=== PATIENT | female | born 1995 | race Hispanic/Latino ===

== ENCOUNTER 2025-05-21 17:27 | Emergency (ER) | payer BC ==
[~2025-05-21] VITALS: Ht 149.9 cm; Wt 80.3 kg
--- NOTE | 2025-05-21 17:51 | EKG ---
[facility] Test Date: 2025-05-21 Test Time: 17:47:45 Pat Name: LAURA SOLER Department: [facility] Room: Gender: F Form Setter: [id number] : 1995 Requested By: IVANA ROUSE Order Number: [id number] Reading MD: Robin Mike Measurements Intervals [place] Rate: 85 P: 30 W[place]: 149 QRS: 63 QRSD: 87 T: 39 QT: 340 QTc: 404 Interpretive Statements Sinus rhythm No previous ECG available for comparison Electronically Signed On 05-21-2025 18:18:39 CDT by Robin Mike Please click the below link to view image of tracing.
--- NOTE | 2025-05-21 18:01 | ERN ---
General Chief Complaint: Abdominal Pain Stated Complaint: SHARP PAINS IN STOMACH/ VOMITING/ DIARRHEA Time Seen by MD: 17:35 Time Seen by Midlevel: 17:35 Source: patient History of Present Illness Initial Comments 29-year-old female who presents to the emergency department due to abdominal pain onset last night. Patient reports nausea, vomiting but denies any diarrhea, dysuria, fevers or further associated symptoms. Patient reports she felt the abdominal pain radiating up to the chest. The patient was seen at [facility] in [place], prescribed Zofran and dicyclomine. Patient denies any current chest pain, shortness of breath or further associated symptoms. Allergies: Coded Allergies: No Known Drug Allergies (Unverified Allergy, Unknown, 05/21/25) Past Medical History Past Medical History: No Pertinent History Past Surgical History: Female( History) LMP: May 12, 2025 ROS Dictation Constitutional: Negative for fever,chills, and weight loss Eyes: Negative for injury, pain,redness, and discharge ENT: Negative for injury,pain or swelling Cardiovascular: Negative for chest pain, palpitations, and edema Respiratory: Negative for shortness of breath, cough, and wheezing, Abdomen/GI: Positive for abdominal pain, nausea, vomiting. Negative for diarrhea. Back: Negative for injury and pain : Negative for painful urination, bleeding or discharge MS/Extremity: Negative for injury and deformity Skin: Negative for rash, and discoloration Neuro: Negative for headache, weakness, numbness, tingling, and seizure Psych: Negative for suicide ideation, homicidal ideation, and hallucinations Physical Exam Physical Exam Dictation General: awake, alert, no acute distress Head/Face: Normocephalic, atraumatic Eyes: PERRL, EOMI, normal conjunctiva ENT: oral cavity clear, oral mucosa moist Neck: Supple, normal range of motion Cardiovascular: RRR, normal S1/S2 Respiratory: CTAB, no respiratory distress, no rales or wheezes Abdomen: Soft, non-tender, non-distended, no guarding or rebound. Skin: Warm, dry, normal turgor, no rash MS/Extremity: Pulses equal, no cyanosis, neurovascular intact, FROM Neuro: COAx4, GCS 15, strength 5/5, CN 2-12 intact, normal cerebellar exam, normal gait Psych: Normal behavior, mood, and affect normal Results Laboratory and Microbiology Lab and Micro Result Laboratory Tests Test 05/21/25 18:19 05/21/25 19:13 White Blood Count 8.7 K/uL (4.8-10.8) Red Blood Count 5.22 MIL/uL (4.00-5.50) Hemoglobin 14.9 g/dL (12.0-16.0) Hematocrit 43.1 % (36-48) Mean Corpuscular Volume 82.6 fL (79-99) Mean Corpuscular Hemoglobin 28.5 pg (27.0-33.0) Mean Corpuscular Hemoglobin Concent 34.6 g/dL (32.0-36.0) Red Cell Distribution Width 13.3 % (11.0-15.5) Platelet Count 217 K/uL (130-400) Mean Platelet Volume 10.9 fL (7.5-10.5) H Immature Granulocyte % (Auto) 0.7 % (0-1) Neutrophils (%) (Auto) 67.1 % (40.0-77.0) Lymphocytes (%) (Auto) 22.6 % (21.0-51.0) Monocytes (%) (Auto) 8.2 % (3.0-13.0) Eosinophils (%) (Auto) 1.1 % (0.0-8.0) Basophils (%) (Auto) 0.3 % (0.0-5.0) Neutrophils # (Auto) 5.8 K/uL (1.8-7.7) Lymphocytes # (Auto) 2.0 K/uL (1.0-4.8) Monocytes # (Auto) 0.7 K/uL (0.1-1.0) Eosinophils # (Auto) 0.10 K/uL (0.00-0.70) Basophils # (Auto) 0.03 K/uL (0.00-0.20) Absolute Immature Granulocyte (auto 0.06 K/uL (0-1) Nucleated Red Blood Cells 0.0 % (0.0-0.19) Sodium Level 138 mmol/L (136-145) Potassium Level 4.2 mmol/L (3.5-5.1) Chloride Level 100 mmol/L (101-111) L Carbon Dioxide Level 30 mmol/L (21-32) Blood Urea Nitrogen 16 mg/dL (7-18) Creatinine 0.8 mg/dL (0.5-1.0) Glomerular Filtration Rate Calc 102 mL/min (>90) Random Glucose 87 mg/dL (70-105) Total Calcium 9.7 mg/dL (8.5-10.1) Total Bilirubin 0.5 mg/dL (0.2-1.0) Direct Bilirubin 0.1 mg/dL (0.0-0.3) Aspartate Amino Transf (AST/SGOT) 13 U/L (10-37) Alanine Aminotransferase (ALT/SGPT) 30 U/L (12-78) Alkaline Phosphatase 59 U/L (50-136) Troponin I High Sensitivity < 4 ng/L (4-50) L Total Protein 7.8 g/dL (6.0-8.3) Albumin 4.0 g/dL (3.5-5.0) Lipase 51 U/L (16-77) Urine Color YELLOW (YELLOW) Urine Appearance CLEAR (CLEAR) Urine pH 6.5 (5.0-8.0) Urine Specific [place] 1.036 (1.001-1.031) Urine Protein 20 mg/dL (NEGATIVE) H Urine Glucose (UA) NEGATIVE mg/dL (NEGATIVE) Urine Ketones 10 mg/dL (NEGATIVE) H Urine Occult Blood NEGATIVE (NEGATIVE) Urine Nitrate NEGATIVE (NEGATIVE) Urine Bilirubin NEGATIVE mg/dL (NEGATIVE) Urine Urobilinogen 2.0 mg/dL (0.2-1.0) H Urine Leukocyte Esterase NEGATIVE Lisa/uL Urine RBC 6-10 /HPF (0-1) H Urine WBC 0-1 /HPF (0-1) Urine Squamous Epithelial Cells FEW /HPF (0-2) Urine Bacteria None /HPF (None Seen) Urine HCG, Qualitative NEGATIVE (NEGATIVE) Labs Reviewed?: Yes EKG/XRAY/US/CT/MRI EKG Comment Date: 05/21/2025 Time: 1747 Rate: 85 EKG interpretation: Sinus rhythm, no STEMI Reviewed by ED Attending MDM MDM: Differential diagnosis: Rationale: 29-year-old female who presents to the emergency department due to abdominal pain onset last night. Patient reports nausea, vomiting but denies any diarrhea, dysuria, fevers or further associated symptoms. Patient reports she felt the abdominal pain radiating up to the chest. The patient was seen at [facility] in [place], prescribed Zofran and dicyclomine. Patient denies any current chest pain, shortness of breath or further associated symptoms. Per physical examination patient is in no acute distress, abdomen is soft nontender. Labs obtained seen chemistry are nonspecific, LFTs within normal limits, normal lipase. Negative troponin. UA negative for urinary tract infe ction. Patient received IV fluids, GI cocktail, Zofran in the ED. On re- examination patient verbalized she felt better and pain had resolved. Patient was educated on findings and diagnosis. Advised to follow up with PCP. Return to the emergency department if any worsening symptoms. Patient verbalized understanding. Patient stable for discharge. There are no social concerns with this patient. I independently interpreted the test that were performed, results were reviewed by me and considered findings on radiology if ordered. Medical management and examination interpretation discussions were had by me with other qualified healthcare professionals as indicated for the patient's care. ED Course Orders Procedure Category Date Status Time Cbc With Differential LAB 05/21/25 Complete 17:35 Basic Metabolic Panel LAB 05/21/25 Complete 17:35 Urinalysis LAB 05/21/25 Complete W/Microscopic 17:35 Hepatic Function Panel LAB 05/21/25 Complete 17:35 Lipase LAB 05/21/25 Complete 17:35 ,Urine Test LAB 05/21/25 Complete 17:35 Troponin I High LAB 05/21/25 Complete Sensitivity 17:35 12 Lead Ekg Tracing- EKG 05/21/25 Resulted Technical 17:35 Mag/Alum/Simeth 30ml PHA 05/21/25 Complete (Maalox Plus 30ml) 18:00 Lidocaine Hcl 2% PHA 05/21/25 Complete Viscous (Lidocaine Hcl 18:00 Pantoprazole 40mg Inj PHA 05/21/25 Complete (Protonix 40mg Inj 18:00 0.9%Nacl 1000ml (Ns PHA 05/21/25 Complete 1000ml) 18:00 Ondansetron Odt 4mg PHA 05/21/25 Complete Tab (Zofran 4mg Odt) 20:00 Current Medications Medications (Trade) Dose Ordered Sig/Segundo Route PRN Reason Start Time Stop Time Status Last Admin Dose Admin Al Hydroxide/Mg Hydroxide (MAALox PLUS 30ML) 30 ml ONCE ONCE PO 05/21/25 18:00 05/21/25 18:01 DC 05/21/25 19:48 Lidocaine HCl (Lidocaine HCl 2% Viscous) 10 ml ONCE ONCE PO 05/21/25 18:00 05/21/25 18:01 DC 05/21/25 19:48 Ondansetron HCl (zoFRAN 4MG ODT) 4 mg ONCE ONCE SL 05/21/25 20:00 05/21/25 20:01 DC 05/21/25 19:50 Pantoprazole Sodium (PROTonix 40MG INJ) 40 mg ONCE ONCE IVP 05/21/25 18:00 05/21/25 18:01 DC 05/21/25 19:48 Sodium Chloride 1,000 ml @ 0 mls/hr ONCE ONCE IV 05/21/25 18:00 05/21/25 18:01 DC 05/21/25 19:51 Vital Signs Date Time Temp Pulse Resp B/P (MAP) Pulse Ox O2 Delivery O2 Flow Rate FiO2 05/21/25 19:10 98.4 89 16 103/72 98 Room Air* 0 21 05/21/25 17:35 99.5 79 20 104/78 98 Room Air DX & DISP Disposition: Discharge Departure Impression: Primary Impression: Vomiting and diarrhea Additional Impression: Acid reflux Condition: Stable Scripts Omeprazole (Omeprazole) 10 Mg Capsule. 1 CAP PO DAILY for 7 Days, #7 CAP 0 Refills Prov: IVANA ROUSE 05/21/25 Additional Instructions: Discharge home. Rest. Follow up with primary care in 24 hours. Return to the ER for any acute changes or worsening symptoms. If any medications were prescribed take as directed. Okay to continue home medications unless otherwise discussed during your visit in the emergency room today. Patient was also advised to follow-up with primary care physician in 1 to 2 days for continued monitoring. Referrals: SELF,REFERRAL (PCP) I performed the substantive portion of the visit. I have reviewed and personally made and approve the management plan that is documented in the notes by myself or the JYOTI. I acknowledge full responsibility for the patient's management plan. IVANA ROUSE May 21, 2025 18:01
[2025-05-21 18:48] LABS: BASOPHILS # (AUTO) 0.03 K/uL (0.00-0.20); BASOPHILS % (AUTO) 0.3 % (0.0-5.0); EOSINOPHILS % (AUTO) 1.1 % (0.0-8.0); HEMATOCRIT 43.1 % (36-48); IMMATURE GRANULOCYTE ABSOLUTE 0.06 K/uL (0-1); LYMPHOCYTES % (AUTO) 22.6 % (21.0-51.0); MEAN CORPUSCULAR HEMOGLOBIN 28.5 pg (27.0-33.0); MEAN CORPUSCULAR HGB CONC 34.6 g/dL (32.0-36.0); MEAN CORPUSCULAR VOLUME 82.6 fL (79-99); MONOCYTES # (AUTO) 0.7 K/uL (0.1-1.0); MONOCYTES % (AUTO) 8.2 % (3.0-13.0); NEUTROPHILS # (AUTO) 5.8 K/uL (1.8-7.7); NEUTROPHILS % (AUTO) 67.1 % (40.0-77.0); PLATELET COUNT (AUTO) 217 K/uL (130-400); RED BLOOD CELL COUNT(AUTO) 5.22 MIL/uL (4.00-5.50); RED CELL DISTRIBUTION WIDTH 13.3 % (11.0-15.5); WHITE BLOOD COUNT (AUTO) 8.7 K/uL (4.8-10.8)
[2025-05-21 19:04] LABS: CREATININE 0.8 mg/dL (0.5-1.0); POTASSIUM 4.2 mmol/L (3.5-5.1)
--- NOTE | 2025-05-21 19:08 | NUR ---
PT CARE ASSUMED AT THIS TIME
[2025-05-21 19:16] LABS: BILIRUBIN,DIRECT 0.1 mg/dL (0.0-0.3); BILIRUBIN,TOTAL 0.5 mg/dL (0.2-1.0); TOTAL PROTEIN, SERUM 7.8 g/dL (6.0-8.3)
[2025-05-21 19:24] LABS: APPEARANCE,URINE CLEAR (CLEAR); BILIRUBIN,URINE NEGATIVE (NEGATIVE); COLOR,URINE YELLOW (YELLOW); GLUCOSE, URINE (UA) NEGATIVE (NEGATIVE); KETONES,URINE 10 mg/dL (NEGATIVE); LEUKOCYTE ESTERASE ,URINE NEGATIVE Leu/uL (NEGATIVE); NITRATE,URINE NEGATIVE (NEGATIVE); OCCULT BLOOD,URINE NEGATIVE (NEGATIVE); PH,URINE 6.5 (5.0-8.0); PROTEIN,URINE 20 mg/dL (NEGATIVE)
[2025-05-21 19:27] LABS: HCG,QUALITATIVE URINE NEGATIVE (NEGATIVE)
[2025-05-21 19:31] LABS: MUCUS,URINE MOD LPF (None Seen); SQUAMOUS EPITHELIAL CELL,UR FEW /HPF (0-2); WBC,URINE 0-1 /HPF (0-1)
[2025-05-21] MEDS: MAG/ALUM/SIMETH 30 ML UDCUP PO ONE (19:48)
[2025-05-21] MEDS: PANTOPrazole 40 MG/VIAL IVP ONE (19:48)
[2025-05-21] MEDS: LIDOCAINE HCL 2% VISCOUS 15 ML UDCUP PO ONE (19:48)
[2025-05-21] MEDS: ondanSETRON ODT 4MG TAB SL ONE (19:50)
[2025-05-21] MEDS: 0.9%NACL 1000ML 1,000 ML IV ONE (19:51)
[2025-05-21] MEDS ORDERED: OMEP10CA5 PO (20:11)
[2025-05-21 21:12] VITALS: BP 118/59; PULSE 80; RESP 15; TEMP 98.3; O2SAT 98
== END 2025-05-21 21:20 | disposition home or self-care (01) ==
LOC: EDH 17:27
DX: K21.9 Gastro-esophageal reflux disease without esophagitis (principal); R11.10 Vomiting, unspecified; R19.7 Diarrhea, unspecified
CPT/HCPCS: 99284; 96374; 96361; 80076; 84484; 80048; 83690; 85025; 81001; 81025; 36415; 93005; J7030; J2470